=== PATIENT | female | born 1995 | race Caucasian/White ===

== ENCOUNTER 2018-08-10 20:43 | Emergency (ER) | payer SELFPAY ==
[~2018-08-10] VITALS: Ht 167.6 cm; Wt 72.3 kg
[2018-08-10 20:52] VITALS: BP 109/72
--- NOTE | 2018-08-10 20:56 | NUR ---
TOOTHACHE X 2 WEEKS. SEEN BY DENTISIT AND TAKEN ABX. PAIN WORSE NOW. PT IS . PER TRIAGE NOTE
--- NOTE | 2018-08-10 21:25 | NUR ---
DC ORDER WAS RECEIVED
--- NOTE | 2018-08-10 21:34 | NUR ---
GIVEN ALL DC INStruction with prescription pt understood pt will follow up with [facility] as soon as possible pt up ambulated to check out
== END 2018-08-10 21:36 | disposition home or self-care (01) ==
LOC: ED 21:32
DX: K02.9 Dental caries, unspecified (principal)
CPT/HCPCS: 99283